=== PATIENT | female | born 1995 | race Caucasian/White ===

== ENCOUNTER → 2018-11-19 | Outpatient (CLI) | payer OTHER ==
--- NOTE | 2018-11-20 08:11 | EKG ---
[place] [address] [email or web address] [place] [address] ELECTROCARDIOGRAM REPORT Name: MARY KATE RICCI Room #: [facility]Kaiser [facility] HospitalIssa[facility] [id number] ������������������ Admission: 11/19/18 ������������������ Attend Phys: Kaley Cortes MD Discharge: ������������������ Date of : [birth year] Report #: [id number] ����������������������������������������������������������������� [id number] THIS REPORT FOR: //name// [facility] Test Date: 2018-11-19 Test Time: 17:25:04 Pat Name: MARY KATE RICCI Department: Room: Gender: F Ditch Digger: Nae RAPP : 1995 Requested By: Kaley Cortes Order Number: [id number] MD: Narciso Britt Measurements Intervals [place] Rate: 72 P: 82 VA: 147 QRS: 66 QRSD: 94 T: 45 QT: 353 QTc: 387 Interpretive Statements Sinus rhythm Normal tracing No previous ECG available for comparison Electronically Signed On 11-20-2018 8:11:06 UNDERCUTTER by Narciso Britt [email or web address] ��������������������������������������������� <ELECTRONICALLY SIGNED> ���������������������������������������� By: Narciso Britt MD, [facility] ��������������������������������������������� 11/20/18 0811 1725 1725 Narciso Britt MD, FACC /EPI
== END ==
LOC: CV 17:04
DX: R07.2 Precordial pain (principal)